=== PATIENT | female | born 1985 | race Caucasian/White ===

== ENCOUNTER → 2021-09-21 | Outpatient (CLI) | payer BC ==
[~2021-09-21] MED LIST: FERR325T6 MT; LIDO35.44 TP; SENN8.6T21 MT; [UNRECOGNIZED DRUG - CODE] MC
== END | disposition home or self-care (01) ==
LOC: LAB 09:38
PROVIDERS: ATTEND Specialist
DX: Z01.812 Encounter for preprocedural laboratory examination (principal); Z20.822 Contact with and (suspected) exposure to COVID-19
CPT/HCPCS: 87426

== ENCOUNTER → 2021-09-22 | Day surgery (SDC) | payer BC ==
[~2021-09-22] VITALS: Ht 165.1 cm; Wt 77.1 kg
[~2021-09-22] MED LIST changes: +BUPIVACAINE HCL/PF 0.5% (5MG/ML) 10ML ONE; +FENTANYL CITRATE/PF 50MCG/ML 2ML VIAL IV PRN; +FENTANYL CITRATE/PF 50MCG/ML 2ML VIAL ONE; +HYDROCODONE/ACETAMINOPHEN 5/325MG TABLET PO SCH; +HYDROMORPHONE HCL/PF 2MG/ML (OR) ONE; +HYDROMORPHONE HCL/PF 2MG/ML CPJ IV PRN; +KETOROLAC 30MG/ML VIAL ONE; +LACTATED RINGERS 1,000 ML IV SCH; +LIDOCAINE HCL 1% 30ML VIAL (10MG/ML) ONE; +LIDOCAINE HCL/PF 1% 10 MG/ML 5ML VIAL ONE; +MIDAZOLAM HCL 2 MG/2 ML VIAL ONE; +ONDANSETRON HCL 4MG/2ML INJ IV PRN; +POLYMYXIN B SULFATE 500000 UNITS/VIAL ONE; +PROPOFOL 200MG/20ML VIAL IV ONE; +SUCCINYLCHOLINE CHLORIDE 200MG/10ML IV ONE
[2021-09-22 05:53] LABS: UCG SCREEN NEGATIVE
[2021-09-22 10:46] VITALS: BP 114/74
== END | disposition home or self-care (01) ==
LOC: OR 05:40
PROVIDERS: ATTEND Specialist
DX: K64.8 Other hemorrhoids (principal); K64.4 Residual hemorrhoidal skin tags; N92.0 Excessive and frequent menstruation with regular cycle; D50.0 Iron deficiency anemia secondary to blood loss (chronic); D25.9 Leiomyoma of uterus, unspecified; Z79.899 Other long term (current) drug therapy; Z98.51 Tubal ligation status; Z98.890 Other specified postprocedural states
CPT/HCPCS: 46250; 46947; 81025; 88304; J0330; J1170; J1885; J2250; J2405; J2704; J3010; J3490

== ENCOUNTER 2021-09-28 16:48 | Inpatient (IN) | payer BC, OTHER ==
[~2021-09-28] VITALS: Ht 165.1 cm; Wt 77.1 kg
[~2021-09-28 16:48] MED LIST changes: -BUPIVACAINE HCL/PF 0.5% (5MG/ML) 10ML ONE; -FENTANYL CITRATE/PF 50MCG/ML 2ML VIAL IV PRN; -FENTANYL CITRATE/PF 50MCG/ML 2ML VIAL ONE; -HYDROCODONE/ACETAMINOPHEN 5/325MG TABLET PO SCH; -HYDROMORPHONE HCL/PF 2MG/ML (OR) ONE; -HYDROMORPHONE HCL/PF 2MG/ML CPJ IV PRN; -KETOROLAC 30MG/ML VIAL ONE; -LACTATED RINGERS 1,000 ML IV SCH; -LIDO35.44 TP; -LIDOCAINE HCL 1% 30ML VIAL (10MG/ML) ONE; -LIDOCAINE HCL/PF 1% 10 MG/ML 5ML VIAL ONE; -MIDAZOLAM HCL 2 MG/2 ML VIAL ONE; -ONDANSETRON HCL 4MG/2ML INJ IV PRN; -POLYMYXIN B SULFATE 500000 UNITS/VIAL ONE; -PROPOFOL 200MG/20ML VIAL IV ONE; -SENN8.6T21 MT; -SUCCINYLCHOLINE CHLORIDE 200MG/10ML IV ONE; -[UNRECOGNIZED DRUG - CODE] MC
[2021-09-28] MEDS ORDERED: MORPHINE SULFATE 4 MG/ML CPJ (NOT FOR IM USE) IV STA ×2 (16:53→19:19)
[2021-09-28] MEDS ORDERED: SODIUM CHLORIDE 0.9% 1,000 ML IV ONE (17:00)
[2021-09-28 17:36] LABS: BASOPHILS % 0.2 % (0.0-2.0); EOSINOPHILS % 1.7 % (0.0-5.0); HEMATOCRIT. 33.4 % (36.0-48.0); LYMPHOCYTES % 13.7 % (20.0-50.0); MEAN CORPUSCULAR HEMOGLOBIN 28.3 pg (28.0-32.0); MEAN CORPUSCULAR VOLUME 85.8 fL (81.0-99.0); MEAN PLATELET VOLUME 10.9 fl (7.4-10.4); MONOCYTES % 10.6 % (2.0-8.0); NEUTROPHILS % 73.8 % (40.0-76.0); PLATELET 300 x1000/uL (130-400); RED CELL DISTRIBUTION WIDTH 14.6 % (11.6-14.6)
[2021-09-28 17:39] LABS: CHLORIDE 106 mEq/L (98-107)
[2021-09-28 18:13] LABS: HCG SCREEN NEGATIVE
[2021-09-28] MEDS ORDERED: ONDANSETRON HCL 4MG/2ML INJ IV STA (19:19)
[2021-09-28] MEDS ORDERED: MORPHINE SULFATE 2 MG/ML CPJ (NOT FOR IM USE) IV NR (19:30)
[2021-09-28] MEDS ORDERED: IOHEXOL-300 100 ML BOTTLE ONE (20:15)
[2021-09-28 20:55] LABS: CLARITY URINE CLEAR (CLEAR); COLOR URINE YELLOW (YELLOW); KETONES URINE NEGATIVE (NEGATIVE); LEUKOCYTE ESTERASE URINE NEGATIVE (NEGATIVE); NITRITE URINE NEGATIVE (NEGATIVE); OCCULT BLOOD URINE NEGATIVE (NEGATIVE); PH URINE 5.5 (4.5-8.0); PROTEIN URINE NEGATIVE (NEGATIVE); SPECIFIC GRAVITY URINE 1.008 (1.005-1.030); UROBILINOGEN URINE 0.2 E.U./dL (0.2-1.0)
[2021-09-28] MEDS ORDERED: DOCUSATE SODIUM 250MG CAPSULE PO ONE (22:30)
[2021-09-29] MEDS ORDERED: MAGNESIUM/ALUMINUM HYDROXIDE/SIMETHICONE 30ML UDC PO PRN (09:45)
[2021-09-29] MEDS ORDERED: ACETAMINOPHEN 325MG TABLET PO PRN (09:45)
[2021-09-29] MEDS ORDERED: DOCUSATE SODIUM 100MG CAPSULE PO PRN (09:45)
[2021-09-29] MEDS ORDERED: CLONIDINE 0.1MG TABLET PO PRN (09:45)
[2021-09-29] MEDS ORDERED: IPRATROPIUM/ALBUTEROL 0.5-3(2.5)MG/3ML NEB HHN PRN (09:45)
[2021-09-29] MEDS ORDERED: ONDANSETRON HCL 4MG/2ML INJ IV PRN (09:45)
[2021-09-29] MEDS: ENOXAPARIN 40MG/0.4ML SYR SUBCUT SCH (10:00)
[2021-09-29 12:11] VITALS: BP 104/62
[2021-09-29] MEDS ORDERED: MAGNESIUM CITRATE 300ML SOLUTION PO NR (13:15)
[2021-09-29 13:35] VITALS: BP 89/49
[2021-09-29] MEDS ORDERED: SODIUM CHLORIDE 0.9% 500 ML IV ONE (13:45)
[2021-09-29 16:00] VITALS: BP 106/62
[2021-09-29] MEDS: HYDROCODONE/ACETAMINOPHEN 5/325MG TABLET PO PRN (16:52)
[2021-09-29 20:00] VITALS: BP 91/55
[2021-09-29] MEDS: SODIUM CHLORIDE 0.9% 1,000 ML IV SCH (21:15)
[2021-09-30] VITALS: BP 111/67
[2021-09-30] MEDS: HYDROCODONE/ACETAMINOPHEN 5/325MG TABLET PO PRN ×2 (00:22→06:36)
[2021-09-30] MEDS: PHENYLEPHRINE/SHK LV/MO/PET RECTAL OINTMENT 57GM PR SCH ×3 (00:23→12:00)
[2021-09-30 04:00] VITALS: BP 108/57
[2021-09-30] MEDS ORDERED: OMEPRAZOLE 20MG CAPSULE EXTENDED RELEASE PO SCH (06:30)
[2021-09-30] MEDS: SODIUM CHLORIDE 0.9% 1,000 ML IV SCH (06:34)
[2021-09-30 08:00] VITALS: BP 109/61
[2021-09-30 08:15] LABS: BASOPHILS % 0.5 % (0.0-2.0); EOSINOPHILS % 2.7 % (0.0-5.0); HEMATOCRIT. 32.3 % (36.0-48.0); HEMOGLOBIN. 10.4 g/dL (12.0-16.0); MEAN CORPUSCULAR HEMOGLOBIN 28.1 pg (28.0-32.0); MONOCYTES % 9.4 % (2.0-8.0); NEUTROPHILS % 63.4 % (40.0-76.0); PLATELET 287 x1000/uL (130-400); RED BLOOD CELL COUNT 3.71 mill/uL (4.2-5.4); RED CELL DISTRIBUTION WIDTH 14.1 % (11.6-14.6)
[2021-09-30 08:22] LABS: CHLORIDE 107 mEq/L (98-107)
[2021-09-30 08:30] LABS: PHOSPHORUS 3.5 mg/dL (2.5-4.9)
[2021-09-30] MEDS ORDERED: DOCUSATE SODIUM 250MG CAPSULE PO SCH (09:00)
[2021-09-30] MEDS: ENOXAPARIN 40MG/0.4ML SYR SUBCUT SCH (09:01)
[2021-09-30] MEDS ORDERED: LIDO35.44 TP (10:10)
[2021-09-30] MEDS ORDERED: SENN8.6T21 MT (10:10)
[2021-09-30] MEDS ORDERED: [UNRECOGNIZED DRUG - CODE] MC (10:10)
[2021-09-30 12:00] VITALS: BP 104/59
[2021-09-30 14:29] VITALS: BP 104/59
== END 2021-09-30 15:10 | disposition short-term general hospital (02) | DRG 696 ==
LOC: ER 16:48 → MICUSO 22:36 → 5EST 09-29 07:43 → MICUSO 09-29 08:01 → 6EST 09-29 11:41
PROVIDERS: ADMIT Internal Medicine; ATTEND Internal Medicine
DX: R33.9 Retention of urine, unspecified (principal); N13.30 Unspecified hydronephrosis; N13.4 Hydroureter; K59.00 Constipation, unspecified; Z79.899 Other long term (current) drug therapy
CPT/HCPCS: 36415; 74177; 80048; 80053; 80076; 81003; 83605; 83735; 84100; 84703; 85025; 93970; 99285; J1650; J2270; J2405; J7030; J7040; Q9967; A4315